=== PATIENT | female | born 1985 | race Caucasian/White ===

== ENCOUNTER → 2022-03-26 | Outpatient (CLI) | payer BC, OTHER ==
--- NOTE | 2022-03-26 09:45 | RAD ---
CT of the abdomen and pelvis without contrast. 03/26/2022 8:35 AM Indication: Dysuria Comparison Study: None. Technique: Multidetector CT imaging of the abdomen pelvis is obtained without administration of contr ast. Findings: The visualized bilateral lung bases are clear. The liver, spleen, bilateral adrenal glands, gallbladder, and pancreas have a normal noncontrast enh anced appearance. There is a 5 mm stone distal left ureter without significant hydronephrosis or hydroureter. No other nephrolithiasis is identified. The right ureter is normal in course and caliber bilateral kidneys are otherwise unremarkable in appearance. Bladder has a grossly unremarkable noncontrast enhanced appear ance. There is no significant free fluid or free air in the abdomen or pelvis. There is no evidence of sushma l obstruction or significant inflamatory change. The appendix is well visualized and grossly normal. There is no acute osseous abnormality identified. Impression: 1. 5 mm stone, distal left ureter without evidence of hydronephrosis or obstructive uropathy 2. Otherwise unremarkable noncontrast enhanced CT of the abdomen and pelvis CT DOSING PQRS STATEMENT: One or more of the following individualized dose reduction techniques were utilized for this examinat ion: 1. Automated exposure control 2. Adjustment of the mA and/or kV according to patient size 3. Use of iterative reconstruction technique Electronically signed by: Poli Soto MD (03/26/2022 9:42 AM) [id number]
== END ==
LOC: CT 08:24
PROVIDERS: ATTEND Specialist
DX: N20.1 Calculus of ureter (principal); R30.0 Dysuria
CPT/HCPCS: 74176

== ENCOUNTER → 2022-04-08 | Outpatient (CLI) | payer BC ==
--- NOTE | 2022-04-08 12:16 | RAD ---
XR ABDOMEN 1V History: Kidney stone Comparison: CT abdomen pelvis 03/26/2022 Technique: Supine radiographs of the abdomen and pelvis. Findings: Bowel gas pattern: Normal. Free air: None. Abnormal calcifications: There is a calcific density measuring 0.5 cm x 0.2 in the left pelvis corres ponding to distal left ureterolith identified on comparison exam. Redemonstrated bilateral pelvic phl eboliths. Bones: No acute findings. Other: IUD projects in central pelvis. Impression: 1. Given differences in technique, similar appearance of 0.5 x 0.2 cm left distal ureterolith. Electronically signed by: Bobby Berman MD (04/08/2022 12:14 PM) [id number]
== END ==
LOC: RAD 10:24
PROVIDERS: ATTEND Specialist
DX: N20.2 Calculus of kidney with calculus of ureter (principal); I87.8 Other specified disorders of veins
CPT/HCPCS: 74018